=== PATIENT | male | born 1940 | race Caucasian/White ===

== ENCOUNTER 2018-03-16 09:38 | Inpatient (IN) | payer OTHER ==
[~2018-03-16] VITALS: Ht 180.3 cm; Wt 77.1 kg
--- NOTE | ~2018-03-16 | EKG ---
[address] [place] [address] ELECTROCARDIOGRAM REPORT Name: CISCO GAMBINO Room #: 419-P ADM IN M.R.#: [id number] Admission: 03/16/18 Attend Phys: Eloy Frank MD Discharge: Date of : 42 Report #: [id number] THIS REPORT FOR: //name// [facility] ED Test Date: 2018-03-16 Test Time: 09:53:38 Pat Name: CISCO GAMBINO Department: Room: [facility] Gender: M Stacking Machine Operator: kf : 1940 Requested By: Naomie Paris Order Number: [id number] MD: Wellington Garcia Measurements Intervals [place] Rate: 85 P: 27 IA: 140 QRS: 1 QRSD: 78 T: 50 QT: 351 QTc: 418 Interpretive Statements Sinus rhythm Abnormal R-wave progression, early transition No previous ECG available for comparison Electronically Signed On 03-17-2018 8:47:39 CDT by Wellington Garcia [email or web address] <ELECTRONICALLY SIGNED> By: Wellington Garcia MD, [facility] 03/17/18 0847 [id number] [id number] Wellington Garcia MD, FACC /EPI
[2018-03-16 09:47] VITALS: BP 141/80
[2018-03-16] MEDS ORDERED: NEURONTIN 400400 M1 PO (09:54)
[2018-03-16] MEDS ORDERED: REMERON15 MG PO (09:54)
[2018-03-16] MEDS ORDERED: METFORMIN HCL1000 MG PO (09:54)
[2018-03-16] MEDS ORDERED: HALOPERIDOL 1 MG1 MG PO (09:54)
[2018-03-16] MEDS ORDERED: LIPITOR 20 MG T20 M1 PO (09:54)
[2018-03-16] MEDS ORDERED: ACETAMINOPHEN1 EACH PO (09:57)
[2018-03-16 10:23] LABS: URINE BILIRUBIN NEGATIVE (Negative); URINE BLOOD NEGATIVE (Negative); URINE CLARITY CLEAR; URINE COLOR YELLOW; URINE GLUCOSE-RANDOM* 3+ (Negative); URINE KETONES NEGATIVE (Negative); URINE LEUKOCYTES-REFLEX NEGATIVE (Negative); URINE NITRITE-REFLEX NEGATIVE (Negative); URINE PROTEIN (DIPSTICK) NEGATIVE (Negative); URINE SPECIFIC GRAVITY 1.025 (1.005-1.035)
[2018-03-16 10:32] LABS: ABSOLUTE NEUTROPHILS 6.9 thou/uL (1.4-8.2); BASOPHILS 0.6 % (0.0-2.0); EOSINOPHILS 0.2 % (0.0-3.0); HEMATOCRIT 33.1 % (42.0-52.0); HEMOGLOBIN 11.4 gm/dL (14.0-18.0); LYMPHOCYTES 3.7 % (24.0-44.0); MCH 28.7 pg (26.0-34.0); MCHC 34.5 g/dL (28.0-37.0); MONOCYTES 6.7 % (1.0-8.0); PLATELET COUNT 182 thou/uL (150-400); POLYS 88.8 % (36.0-66.0); RBC 3.99 mil/uL (4.50-6.00); RDW 13.7 % (10.5-14.5); WBC 7.8 thou/uL (4.0-11.0)
[2018-03-16 10:49] LABS: ANION GAP 11 mmol/L (7-16); BUN 16 mg/dL (7-18); CALCIUM 9.3 mg/dL (8.5-10.1); CHLORIDE 102 mmol/L (98-107); CO2 26 mmol/L (21-32); CREATININE 1.1 mg/dL (0.7-1.3); GLUCOSE 190 mg/dL (74-106); SODIUM 139 mmol/L (136-145)
[2018-03-16 10:53] LABS: ALBUMIN 3.7 g/dL (3.4-5.0); SGOT 14 U/L (15-37); SGPT 12 U/L (30-65); TOTAL BILIRUBIN 0.5 mg/dL (<0.1-1.0); TOTAL PROTEIN 7.3 g/dL (6.4-8.2); TROPONIN-I <0.06 ng/mL (<0.06)
[2018-03-16 14:17] VITALS: BP 170/77
[2018-03-16 19:47] VITALS: BP 147/81
[2018-03-17] VITALS (9 sets, daily range): BP systolic 130–139; BP diastolic 74–81
[2018-03-17 04:29] LABS: HEMATOCRIT 32.5 % (42.0-52.0); HEMOGLOBIN 11.3 gm/dL (14.0-18.0); MCHC 34.7 g/dL (28.0-37.0); MCV 83.6 fL (80.0-100.0); RBC 3.88 mil/uL (4.50-6.00); RDW 13.6 % (10.5-14.5); WBC 5.4 thou/uL (4.0-11.0)
[2018-03-17 04:45] LABS: ANION GAP 10 mmol/L (7-16); BUN 19 mg/dL (7-18); CALCIUM 9.1 mg/dL (8.5-10.1); CHLORIDE 102 mmol/L (98-107); CO2 26 mmol/L (21-32); CREATININE 0.9 mg/dL (0.7-1.3); GLUCOSE 153 mg/dL (74-106); MAGNESIUM 1.7 mg/dL (1.8-2.4); POTASSIUM 3.8 mmol/L (3.5-5.1); SODIUM 138 mmol/L (136-145); TROPONIN-I <0.06 ng/mL (<0.06)
[2018-03-17] MEDS ORDERED: MAGOX 400400 MG PO (12:09)
[2018-03-20 11:44] VITALS: BP 130/74
== END 2018-03-17 15:07 | disposition home health service (06) | DRG 70 ==
LOC: ER 09:38 → 4E 12:31 → EROBS 12:31 → 4E 15:34 → ENTRNSPT 03-17 14:17 → EDTRNSPTSTS 03-17 14:28 → 4E 03-17 15:07
PROVIDERS: Internal Medicine; Nurse Practitioner Family
DX: G93.49 Other encephalopathy (principal); E43 Unspecified severe protein-calorie malnutrition; F03.91 Unspecified dementia, unspecified severity, with behavioral disturbance; S80.01XA Contusion of right knee, initial encounter; M25.461 Effusion, right knee; E11.40 Type 2 diabetes mellitus with diabetic neuropathy, unspecified; E78.5 Hyperlipidemia, unspecified; F03.90 Unspecified dementia, unspecified severity, without behavioral disturbance, psychotic disturbance, mood disturbance, and anxiety; F32.9 Major depressive disorder, single episode, unspecified; G47.00 Insomnia, unspecified; F17.290 Nicotine dependence, other tobacco product, uncomplicated; M70.41 Prepatellar bursitis, right knee; Z79.899 Other long term (current) drug therapy; W18.39XA Other fall on same level, initial encounter; Y93.89 Activity, other specified; Y92.89 Other specified places as the place of occurrence of the external cause; Y99.8 Other external cause status
CPT/HCPCS: 10084

== ENCOUNTER 2019-03-23 15:34 | Inpatient (IN) | payer OTHER ==
[~2019-03-23] VITALS: Ht 182.9 cm; Wt 67.9 kg
[~2019-03-23 15:34] MED LIST: ACETAMINOPHEN1 EACH PO; HALOPERIDOL 1 MG1 MG PO; LIPITOR 20 MG T20 M1 PO; MAGOX 400400 MG PO; METFORMIN HCL1000 MG PO; NEURONTIN 400400 M1 PO; REMERON15 MG PO
[2019-03-23 15:37] VITALS: BP 173/100
[2019-03-23 16:18] LABS: ABSOLUTE NEUTROPHILS 7.9 thou/uL (1.4-8.2); BASOPHILS 0.9 % (0.0-2.0); EOSINOPHILS 0.4 % (0.0-3.0); HEMOGLOBIN 11.9 gm/dL (14.0-18.0); LYMPHOCYTES 7.4 % (24.0-44.0); MCH 26.3 pg (26.0-34.0); MCV 79.9 fL (80.0-100.0); MONOCYTES 6.3 % (1.0-8.0); PLATELET COUNT 236 thou/uL (150-400); RBC 4.51 mil/uL (4.50-6.00); RDW 15.3 % (10.5-14.5); WBC 9.3 thou/uL (4.0-11.0)
[2019-03-23 16:25] LABS: ANION GAP 8 mmol/L (7-16); BUN 15 mg/dL (7-18); CALCIUM 9.7 mg/dL (8.5-10.1); CHLORIDE 98 mmol/L (98-107); CO2 30 mmol/L (21-32); CREATININE 0.8 mg/dL (0.7-1.3); GLUCOSE 169 mg/dL (74-106); POTASSIUM 4.3 mmol/L (3.5-5.1); SODIUM 136 mmol/L (136-145)
[2019-03-23 16:35] LABS: SGOT 24 U/L (15-37); SGPT 10 U/L (30-65); TOTAL BILIRUBIN 0.7 mg/dL (<0.1-1.0); TOTAL PROTEIN 7.3 g/dL (6.4-8.2); TROPONIN-I <0.06 ng/mL (<0.06)
[2019-03-23 16:39] LABS: APTT 22.5 Seconds (24.5-32.8); PROTIME 10.7 Seconds (9.3-11.4)
[2019-03-23 17:23] LABS: URINE BILIRUBIN NEGATIVE (Negative); URINE BLOOD TRACE (Negative); URINE CLARITY CLEAR; URINE COLOR YELLOW; URINE GLUCOSE-RANDOM* 2+ (Negative); URINE KETONES NEGATIVE (Negative); URINE LEUKOCYTES-REFLEX NEGATIVE (Negative); URINE NITRITE-REFLEX NEGATIVE (Negative); URINE PROTEIN (DIPSTICK) NEGATIVE (Negative); URINE SPECIFIC GRAVITY <= 1.005 (1.005-1.035); URINE UROBILINOGEN 0.2 E.U./dl (0.2-1.0)
[2019-03-23] MEDS ORDERED: B-125000 MC1 PO (19:14)
[2019-03-23] MEDS ORDERED: ASA81BEC PO (19:15)
[2019-03-23 19:18] VITALS: BP 185/95
[2019-03-23 22:20] VITALS: BP 189/95
[2019-03-23 22:22] VITALS: BP 189/95
[2019-03-23 22:23] VITALS: BP 189/95
--- NOTE | 2019-03-23 22:24 | NUR ---
PT ADMITTED PER CART FROM ED. PRESENTED WITH AMS AND WEAKNESS. HAS HAD SEVERAL RECENT FALLS AT HOME. PT WAS SEEN AT ANOTHER FACILITY, WHERE HE HAD A CT SCAN WHICH WAS NEGATIVE. DISCHARGED. WENT TO PCP WHO RECOMMENDED THEY GO TO ANOTHER ED FOR FURTHER EVAL. FAMILY STATED THAT SINCE THE FALL, HE SEEMS WEAKER,MORE CONFUSED,AND UNABLE TO HAVE CLEAR CONVERSATIONS OR FOLLOW COMMANDS. FAMILY NOTICED MOR FREQUENT INCONTINENCE. PT HAS PARKINSONS, PREVIOUS HX OF DEMENTIA, AND DMII. ARRIVED ON UNIT AND WAS GENERALLY COOPERATIVE, BUT IS CONFUSED AND DISORIENTED. INCONTINENT, BUT DID ALLOW ESCORT TO BATHROOM. VERY UNSTEADY ON HIS FEET BUT DID ALLOW ASSIST. SKIN INTACT. ELEVATED BP, AND WAS PROVIDED IV HYDRALYZINE IN ED. ORDERED THAT MED PO IN THE FUTURE.
[2019-03-24 07:47] VITALS: BP 189/95
[2019-03-24 08:18] VITALS: BP 173/102
--- NOTE | 2019-03-24 11:01 | EKG ---
[place] [address] [facility] [employer] [place] [address] ELECTROCARDIOGRAM REPORT Name: CISCO GAMBINO Room #: 519B-B ADM IN M.R.#: [id number] Admission: 03/23/19 Attend Phys: Elvis Perez Discharge: Date of : 42 Report #: [id number] THIS REPORT FOR: //name// [facility] ED Test Date: 2019-03-23 Test Time: 16:50:55 Pat Name: CISCO GAMBINO Department: Room: [facility] Gender: M Student Services Vice President: ALMA : 1940 Requested By: Naomie Paris Order Number: [id number] MD: Matthew Jaramillo Measurements Intervals [place] Rate: 88 P: 6 IL: 137 QRS: 8 QRSD: 75 T: 66 QT: 359 QTc: 435 Interpretive Statements Sinus rhythm Multiple premature complexes, vent & supraven Abnormal R-wave progression, early transition Baseline wander in lead(s) V5 Compared to ECG 03/16/2018 09:53:38 No significant changes Electronically Signed On 03-24-2019 11:01:07 CUFF KNITTER by Matthew Jaramillo [email or web address] <ELECTRONICALLY SIGNED> By: Matthew Jaramillo MD 03/24/19 1101 1650 1650 Matthew Jaramillo MD /EPI
[2019-03-24 11:20] VITALS: BP 173/102
[2019-03-24 11:41] VITALS: BP 173/102
--- NOTE | 2019-03-24 11:48 | NUR ---
THE PATIENT IS CONFUSED. HE HAS BEEN SITTING UP IN THE DAY ROOM IN A WITH A LAP EFREN ON. THE PATIENT WAS TALKING NONSENSIBLE WHEN ASKED QUESTIONS REGARDING HIS ASSESSMENT. IVSL WAS DISCONTINUED. THE PATIENT NEEDS ASSISTANCE WITH ADL'S. HIS FAMILY MEMBERS VISITED TODAY AND TOOK HOME THE CLOTHES THEY HAD BOUGHT IN. THEY SIGNED THE PERSONAL BELONGINGS DOCUMENT IN THE CHART. THE PATIENT IS INCONTINENT. HE HAS BEEN QUIET BUT RESTLESS AND DISORIENTED.
[2019-03-24 12:46] VITALS: BP 139/110
[2019-03-24 19:20] VITALS: BP 144/78
--- NOTE | 2019-03-24 21:56 | NUR ---
Care assumed of patient at 1915: Patient seated in w/c in day room at start of shift. Patient alert and oriented to person only. Patient confused and forgetful. Patient restless and attempting to slide out of w/c several times. Needed mod-max assist x2 to assist patient to stand and sit back in w/c. Patient denies pain or discomfort. Patient irritable and agitated. Patient having difficulty following one step simple directions. Needs frequent orientation and directions repeated. Patient resistive to care and assist from staff. Patient impulsive. Patient took HS medication whole without difficulty. Patient declined HS snack. Patient incontinent of bladder x1. Sonia care completed and linens changed. Patient having disorganized thoughts and is not answering questions appropriately. Patient has periods of clear speech but is word salad. Patient did ask for his and required re-orientation that he is in the hospital. Patient has poor short term memory and needs reminded every several minutes. Patient assisted to bed with staff assist x2 due to resistive behaviors. Patient resting quietly at this time.
[2019-03-25 07:42] VITALS: BP 148/82
--- NOTE | 2019-03-25 18:19 | NUR ---
ORIENTED TO NAME ONLY DURING AM ASSESSMENT-COOPERATIVE WITH VERBAL REQUESTS FROM STAFF IF GIVEN SHORT BRIEF INSTRUCTIONS. REQUIRES ASSIST WITH ALL ADLS AND HAS BEEN INCONTINENT OF URINE X2 THIS SHIFT-OFFERED URINAL Q2-3 HRS AND DID VOID SMALL AMOUNT OF URINE ONCE-PERINEAL CARE PROVIDED AND NO SKIN BREAKDOWN OR REDDNESS OBSEERVED. REQUIRES SBA X2 AND GAIT BELT FOR TRANSFERS D/T CONFUSION-MIDWAY THROUGH PIVOT TRANSFER FROM BED TO CHAIR PULLED LEGS UP IF TO SIT ON FLOOR AND HAD TO BE LIFTED MANUALLY TO CHAIR. ACCUCHECKS ACHS AND HAVE RANGED ALVARO 100-140 THIS SHIFT. COMPLIENT WITH TAKING MEDS WHOLE WITH COAXING AND CUEING-FEEDS SELF AND APPETITE IS GOOD-DENIES C/O PAIN AND APPEARS IN NO APPERENT DISTRESS-[LACED IN RECLINER CHAIR AFTER LUNCH D/T REPEATED ATTEMPTS TO GET OUT OF CHAIR ,HIGHLY IMPULSIVE AND GAIT UNSTEADY-PLACED IN RECLINING POSITION AND FEET ELEVATED. SMEARING BM-ACTIVE BS AND NO ABDOMINAL DISTENSION NOTED-WILL CONTINUE TO MONITOR
[2019-03-25 20:10] VITALS: BP 140/73
--- NOTE | 2019-03-26 01:15 | NUR ---
ASSUMED CARE ON 03/25/19 @ 19:15, IN RECLINER IN DAY ROOM, REMOVING LAP EFREN, TAKING GOWN AND BLANKET OFF AND THROWING THEM ON THE FLOOR. TRANSFERRED TO BED X 2 ASSIST. PATIENT WAS ABLE TO STAND AND PIVIT TO TRANSFER FROM CHAIR TO BED. ORIENTED X1 TO PERSON ONLY. ABLE TO FOLLOW SHORT DIRECTIONS. CONFUSION AND AGITATION NOTED. PATIENT DID NOT STAY IN BED, CONTINUED TO CLIMB OUT OF BED. HS MEDS TAKEN WHOLE WITH WATER. @ 22:10 PRN TYLENOL 650 PROVIDED FOR GENERAL PAIN AND DISCOMFORT AND HALDOL 2.5MG PROVIDED FOR AGITATION AND RESTLESSNESS. PATIENT CONTINUES TO GET OUT OF BED, AND BECOMES COMBATITIVE WHEN RETURNED TO BED. INCONTINENT X 1, BEDDING CHANGED, PATIENT GIVEN INCONTINENT CARE. BED IN LOW POSITION, BED ALARM SET, WILL CONTINUE TO MOITOR Q 12 MINUTES FOR PATIEN SAFETY.
[2019-03-26 05:27] VITALS: BP 140/73
[2019-03-26 09:03] VITALS: BP 150/80
[2019-03-26 13:35] VITALS: BP 150/80
--- NOTE | 2019-03-26 18:18 | NUR ---
THE PATIENT IS EXTREMELY CONFUSED. HE HAS BEEN SITTING IN THE DAY ROOM IN A WC WITH A LAP BUSSY ON. HE HAD SLID OUT OF THE CHAIR TWICE TODAY. HE IS ALERT. INCONTINENT OF B/B. AT TIMES HE WAS VERY RESTLESS. THE PATIENT IS DEMENTED. HE HAS TO BE FED AND IS A COMPLETE ASSIST IN ALL ADL'S. HE IS QUIET AT THIS TIME.
[2019-03-26 20:11] VITALS: BP 150/87
--- NOTE | 2019-03-27 01:01 | NUR ---
ASSUMED CARE @ 19:15 ON 03/26/19, IN BED EYES CLOSED, RESPIRATIONS EVEN AND UNLABORED. AWAKENED TO VOICE AND COOPERATED WITH ASSESSMENT AND FOR MEDICATION ADMINISTRATION. PT IS EXTREMELY CONFUSED. ORIENTED X 1 TO PERSON ONLY. COMPLETE ASSIST WITH ADL'S. TYLENOL 650 PROIVDED FOR GENERAL PAIN AND HALDOL 2.5 MG PROVIDED FOR AGITATION AND RESTLESSNESS. INCONTINENT CARE PROVIDED. BED IN LOW POSITION, BED ALARM SET, WILL CONTINUE MONITORING Q 12 MINUTES FOR PATIENT SAFETY.
[2019-03-27 01:08] VITALS: BP 150/87
--- NOTE | 2019-03-27 05:55 | NUR ---
SLEPT 11.4 HOURS OVERNIGHT
[2019-03-27 08:55] VITALS: BP 129/65
[2019-03-27 20:06] VITALS: BP 151/75
--- NOTE | 2019-03-28 00:26 | NUR ---
Care assumed of patient at 1915: Patient alert and oriented to person only. Patient confused and forgetful. Patient seated in w/c in the day room at start of shift. Patient attempting to slide self forward out of w/c. Patient re-positioned several times. Patient assessed for pain. Appears to be tense and restless. Patient provided Tylenol PRN for generalized pain. Patient did state that he was tired and wanted to go to bed. Patient calm and cooperative this shift. No aggression or agitation observed. Patient took HS medication whole without difficulty. Declined HS snack. Denies SI/HI/AH/VH. No s/s of delusional or paranoia behaviors. Speech disorganized at times. Patient is able to answer some questions appropriately then becomes confused and will just stare. Patient provided HS medication then was assisted to bed. Mod assist required x2 due to poor balance and impulsive behaviors. Once assisted to bed, patient was able to fall asleep without difficulty and has been resting quietly since.
[2019-03-28 09:33] VITALS: BP 146/75
[2019-03-28 11:39] VITALS: BP 146/75
--- NOTE | 2019-03-28 15:28 | NUR ---
CHARLIE attended a meeting with pt's Emilie and the psych doctor in which discharge was discussed. Emilie wants pt to go home. He does not qualify for Medicaid. She does not have much funds to place him into a NH. FLAME HARDENING MACHINE OPERATOR talked with [facility] doctor about pt going home with HH. He said that his concern is that pt's shower is not one he can easily get into; Emilie said that pt goes across their driveway to their daughter's house and takes a shower at his home. She reiterated that he has family that will help. She also said that she knows of a woman in her town that provides DARKROOM TECHNICIAN services to persons diagnosed with dementia. The psych doctor is okay with HH as long as P/T is in agreement. SW team will continue to follow pt during his stay.
--- NOTE | 2019-03-28 15:56 | NUR ---
THE PATIENT HAS BEEN SITTING IN THE DAY ROOM THROUGH OUT THE DAY. HE IS IN A WC WITH A LAP EFREN ON. THE PATIENT WAS AMBULATING IN THE HALLWAY EARLIER WITH A SW BUT HE BEGIN TO GO DOWN TO THE FLOOR. HE WAS ASSISTED INTO A WC AND TAKEN TO THE DAY ROOM. THE PATIENT WAS CHECKED FOR WETNESS BUT HE WAS DRY. HE WAS ASKED IF HE NEEDED TO USE THE TOILET. THE PATIENT USED THE URINAL. HE HAS BEEN ANSWERING QUESTIONS APPROPRIATELY. HE HAS BEEN QUIET AND CALM. HE HAS BEEN COMPLIANT WITH MEDICATIONS.
--- NOTE | 2019-03-28 17:18 | NUR ---
I have reviewed the documentation by OANH REAL from 03/28/19 to 03/28/19 and I concur with it. MARTINEZ LOZANO
[2019-03-28 19:52] VITALS: BP 145/71
[2019-03-28 23:20] VITALS: BP 146/75
--- NOTE | 2019-03-29 03:06 | NUR ---
PT IN BED SLEEPING AT BEGINNING OF SHIFT. HAD BEEN UP TO BR AT 1900. TOOK HS MEDS WITH H2O, AND HAS SLEPT WELL THROUGH THE NIGHT. REMAINS VERY CONFUSED, BUT COOPERATIVE.
[2019-03-29 08:57] VITALS: BP 140/75
--- NOTE | 2019-03-29 12:01 | NUR ---
HAS APPEARED MORE ALERT/RESPONSIVE THIS AM-FEEDING SELF BREAKFAST-CONVERSING WITH FEMALE PEER AT TABLE-APPETITE GOOD-GREETS THIS NURSE PLEASANTLY AND IS AWARE HE IS IN THE HOSPITAL-DOES NOT KNOW DATE. CONVERSES BRIEFLY ABOUT CHILDREN WHILE TAKING AM MEDS. DENIES COMPLAINTS OF PAIN/DISCOMFORT. HAS NOT APPEARED RESTLESS,SO FAR THIS SHIFT NOT OBSERVED TO BE ATTEMPTING TO REMOVE CLOTHING OR GET OUT OF CHAIR. INCONT OF URINE X1-COOPERATIVE WITH BRIEF CHANGE/PERINEAL CARE
--- NOTE | 2019-03-29 16:07 | NUR ---
CHARLIE received order for HH from psych doctor. CHARLIE contacted [facility] and spoke with admissions who said they had pt before and will take him back. CHARLIE contacted pt's and asked when a good time for d/c would be. She responded that 1300 would be fine. CHARLIE faxed [facility] and explained that pt will d/c at 1300 on 03/30. CHARLIE team will continue to follow pt during his stay.
[2019-03-29 16:15] VITALS: BP 140/75
[2019-03-29 19:57] VITALS: BP 141/71
--- NOTE | 2019-03-29 23:28 | NUR ---
Care assumed of patient at 1915: Patient resting in bed at start of shift. Patient easily arousable. Alert and oriented to person. Pleasantly confused and forgetful. Patient calm, pleasant and cooperative. Patient denies pain or discomfort. Smiling at nurse while speaking with her. Appears relaxed. Took HS medication whole without difficulty. Declined HS snack. Incontinent of bladder. Sonia care completed and linens changed. Patient speaking clear, logical thoughts. Denies any complaints or concerns at this time. Denies SI/HI/AH/VH. No s/s of delusional or paranoia behaviors observed. Patient has continued to rest well in bed this shift.
[2019-03-30 05:31] LABS: CALCIUM 9.5 mg/dL (8.5-10.1); CREATININE 0.9 mg/dL (0.7-1.3); MAGNESIUM 1.7 mg/dL (1.8-2.4); POTASSIUM 4.2 mmol/L (3.5-5.1)
[2019-03-30 05:37] LABS: HEMATOCRIT 35.8 % (42.0-52.0); HEMOGLOBIN 11.9 gm/dL (14.0-18.0); MCH 26.7 pg (26.0-34.0); MCHC 33.2 g/dL (28.0-37.0); MCV 80.6 fL (80.0-100.0); RBC 4.44 mil/uL (4.50-6.00); WBC 5.8 thou/uL (4.0-11.0)
[2019-03-30 09:05] VITALS: BP 141/88
--- NOTE | 2019-03-30 10:00 | NUR ---
ASSUMED CARE THIS MORNING AT 0700. PT ALERT AND AWAKE. CALM AT HE ACTIVITY ROOM. aBLE TO EAT BREAK FAST AND TAKE MEDIACTIONS WHOLE. 1000; PT VERY ACTIVE WALKING AROUND THE HALLWAYS. TALKING ABOUT HIS SON COMING FOR HIM. PT MIGHT DISCHARGE TO HOME TODAY. SPOUSE WILL BE TAKING CARE OF HIM. WILL CONTINUE WITH PLAN OF CARE.
[2019-03-30] MEDS ORDERED: METOPROLOL SUCC50 MG PO (12:37)
[2019-03-30] MEDS ORDERED: REMERON15 MG PO (12:38)
[2019-03-30] MEDS ORDERED: SEROQUEL 25 MG25 MG PO (12:39)
[2019-03-30] MEDS ORDERED: NEURONTIN 300300 M1 PO (12:41)
--- NOTE | 2019-03-30 14:38 | NUR ---
CHARLIE D/C note CHARLIE received a call from Scarlet with [facility] stating that insurance is saying pt will be responsible for 45% of payment. CHARLIE explained that he has been with their agency before. Scarlet said she would call back after checking again. Scarlet called CHARLIE again and said pt is covered 100%. She just needed to verify that at this time he will not need SW services due to them not currently having a SW. This SW stated that his did not mention needing one. CHARLIE faxed pt's discharge paperwork to [facility]. No other needs for SW to address at this time[place] [address]
--- NOTE | 2019-04-01 10:51 | D ---
[facility] [place] [address] DISCHARGE SUMMARY Name: CISCO GAMBINO Room #: 519B-B [facility] IN M.R.#: [id number] Admission: 03/23/19 Attend Phys: Justin Cote DO Discharge: 03/30/19 Date of : 42 Report #: [id number] THIS REPORT FOR: //name// CC: Justin MEJÍA Physician staff DATE OF SERVICE: 03/30/2019 INPATIENT PSYCHIATRIC DISCHARGE SUMMARY PRIMARY ATTENDING PHYSICIAN: Justin Cote DO. DIRECTOR OF IT OPERATIONS AT THE TIME OF DISCHARGE: Sb Massey M.D. DISCHARGE DIAGNOSES: As follows: Major neurocognitive disorder, likely due to Alzheimer's disease with behavioral disturbance, improved. MEDICAL COMORBIDITIES: As follows: Hypertension, on metoprolol, peripheral neuropathy, on Neurontin, diabetes mellitus type 2 with neuropathy, on metformin, hyperlipidemia, on Lipitor. DISCHARGE PLAN: The patient is being discharged to his family home in [place], [place]. The patient will get home health care through [facility], PT and OT to help with ADLs. DIET: Regular. ACTIVITY LEVEL: As tolerated. He can ambulate with a walker and standby assist, recommended a shower chair. MEDICATIONS: Metformin 1000 mg oral twice daily, atorvastatin 20 mg oral daily for diabetes and hyperlipidemia respectively, vitamin B12 1000 mcg oral daily for replacement, aspirin 325 mg oral daily for cardio-protection, metoprolol succinate 50 mg ER for hypertension, gabapentin 300 mg twice daily for neuropathy, Seroquel 25 mg at 0900, 1500, 2100 for impulse control, mirtazapine 15 mg oral at bedtime for sleep and appetite. REASON FOR ADMISSION: Back on March 23, apparently, the patient had a fall this morning, came to the ER, high blood pressure, was released, went straight to primary care, not normal state, was confused, referred him for Geriatric Psychiatry admission. HOSPITAL COURSE: The patient was admitted to Geriatric Psychiatry Unit. The patient had had a clear decrease in functioning. His dementia turns out to be 3 years in duration. It was initially accorded to be happening ____ fall, which I [facility] [address] [place] [address] DISCHARGE SUMMARY Name: CISCO GAMBINO Room #: 519B-B DIS IN [facility].#: [id number] Admission: 03/23/19 Attend Phys: Justin Cote, Discharge: 03/30/19 Date of : 42 Report #: [id number] never believed. The need for 24/7 care and assistance was emphasized to the and the patient's sons and daughters. The family elected to do care at home instead of placement. The various issues involved in this including mitigating the elopement risk were discussed, but the family wished to pursue that route. LABORATORY DATA: This admission, most recent CBC abnormalities: Hemoglobin 11.9, hematocrit 35.8, white count was normal at 5.8, platelets 280. Chemistries on March 30, abnormalities: CO2 of 33, BUN 27, glucose 131, magnesium 1.7, calcium 9.5, sodium was 141. Coags on admission: PT 10.7, INR 1.0, aPTT 22.5. Urinalysis was negative with the exception of 2+ glucose and trace blood. There were 2 negative blood cultures drawn at the time of admission. PHYSICAL EXAMINATION: VITAL SIGNS: On the day of discharge, temperature 36.6, pulse is wnl, respirations 18, BP 141/88, O2 sat 98%. MUSCULOSKELETAL: Seated in wheelchair. Gait not tested. MENTAL STATUS EXAMINATION: This is a well-developed, disheveled, tall male, appearing stated age. Attention limited. Concentration limited. Speech soft, normal rate. Thought process linear and limited. Thought content, relative poverty of thought. No psychomotor agitation or psychomotor retardation. Denied SI or HI. Denied hopelessness, helplessness. Memory known to be impaired. Insight limited. Judgment limited. Fund of knowledge below average. PROGNOSIS: For this patient is guarded given age of 79 and having a major neurocognitive disorder. <ELECTRONICALLY SIGNED> By: Justin Cote DO 04/01/19 1051 0944 1037 Justin Cote DO /nt
== END 2019-03-30 13:15 | disposition home health service (06) | DRG 57 ==
LOC: ER 15:34 → EROBS 17:11 → SBH 17:11
PROVIDERS: Emergency Medicine; Internal Medicine; Nurse Practitioner Family; ADMIT Psychiatry & Neurology Psychiatry
DX: G30.9 Alzheimer's disease, unspecified (principal); F02.81 Dementia in other diseases classified elsewhere, unspecified severity, with behavioral disturbance; F05 Delirium due to known physiological condition; G20 Parkinson's disease; E11.9 Type 2 diabetes mellitus without complications; R32 Unspecified urinary incontinence; E11.42 Type 2 diabetes mellitus with diabetic polyneuropathy; E78.5 Hyperlipidemia, unspecified; F32.9 Major depressive disorder, single episode, unspecified; I10 Essential (primary) hypertension; R26.9 Unspecified abnormalities of gait and mobility; Z79.84 Long term (current) use of oral hypoglycemic drugs
CPT/HCPCS: 10880

== ENCOUNTER 2020-02-20 19:19 | Emergency (ER) | payer OTHER ==
[~2020-02-20] VITALS: Ht 172.7 cm; Wt 63.5 kg
[~2020-02-20 19:19] MED LIST changes: +ASA81BEC PO; +B-125000 MC1 PO; +METOPROLOL SUCC50 MG PO; +NEURONTIN 300300 M1 PO; +SEROQUEL 25 MG25 MG PO
[2020-02-20 21:09] VITALS: BP 152/68
== END 2020-02-20 21:10 | disposition left against medical advice (07) ==
LOC: ER 19:19
DX: Z53.21 Procedure and treatment not carried out due to patient leaving prior to being seen by health care provider (principal)